=== PATIENT | female | born 1935 | race Caucasian/White ===

== ENCOUNTER 2017-03-15 11:54 | Outpatient (CLI) | payer MEDICARE ==
[2013-01-03 07:51] VITALS: BMI 26.3
== END 2017-03-15 16:31 ==
LOC: D.MAMMO 11:54
DX: Z12.31 Encounter for screening mammogram for malignant neoplasm of breast (principal)

== ENCOUNTER → 2018-10-25 08:57 | Outpatient (CLI) | payer MEDICARE ==
[2013-01-03 07:51] VITALS: BMI 26.3
--- NOTE | 2018-11-01 12:11 | ST ---
PATIENT:FRANCISCO CAMARILLO MEDICAL RECORD: [id number] SEX: F LOCATION:[facility] ORDER #: ADMISSION DATE: 10/25/18 AGE OF PATIENT: 83 REFERRING PHYSICIAN: INTERPRETING PHYSICIAN: RAMIREZ CASTAÑEDA MD DATE OF SERVICE: 10/25/2018 PROCEDURE: Nuclear stress test. INDICATIONS: Angina, hypertension, diabetes, and hyperlipidemia. PROCEDURE DETAILS: The patient was exercised on standard Karthikeyan protocol for 5 minutes achieving greater than 85% max target heart rate response with 31 mCi of sestamibi injected at peak stress. Rest images were done previously with 10 mCi. FINDINGS: Gated SPECT reveals preserved ejection fraction at 73% with good wall motion and thickening and brightening throughout all segments. SPECT imaging Cardiolite was used as myocardial fusion agent. There is homogeneous uptake throughout all segments at rest and stress with no evidence of inducible ischemia or previous infarction. OVERALL IMPRESSION: 1. This is a normal nuclear stress test with no evidence of inducible ischemia or previous infarction. 2. Gated SPECT reveals a preserved ejection fraction at 73%. In this patient with ongoing symptomatology, the current scan does not suggest the presence of hemodynamically significant coronary artery disease. Evaluate noncardiac etiology of chest pain. TRANSINT:[id number] Voice Confirmation ID: [id number] DOCUMENT ID: [id number] cc: SHEEBA Doll JEFFREY MD at 1211 CC: [id number] DICTATION DATE: 10/25/18 1521 DRAFTER AUTOMOTIVE DESIGN: 10/25/18 2357 DEP CLI 10/25/18 [address] [place] [address]
== END | disposition home or self-care (01) ==
LOC: D.HCCARDIO 08:57
DX: I20.9 Angina pectoris, unspecified (principal); I10 Essential (primary) hypertension; E11.9 Type 2 diabetes mellitus without complications; E78.5 Hyperlipidemia, unspecified

== ENCOUNTER → 2020-03-17 08:32 | Outpatient (CLI) | payer MEDICARE ==
[2013-01-03 07:51] VITALS: BMI 26.3
== END | disposition home or self-care (01) ==
LOC: D.RAD 08:32
PROVIDERS: ATTEND Anesthesiology Pain Medicine
DX: M25.559 Pain in unspecified hip (principal); M46.1 Sacroiliitis, not elsewhere classified

== ENCOUNTER 2020-07-07 14:56 | Observation (INO) | payer MEDICARE ==
[~2020-07-07] VITALS: Ht 165.1 cm; Wt 68.6 kg
--- NOTE | ~2020-07-07 | HEMODYNAMI ---
PATIENT:FRANCISCO CAMARILLO MEDICAL RECORD: [id number] : 39 [id number] ADMISSION DATE: 07/07/20 Generatedon:07/08/20208:56 Patient name: FRANCISCO CAMARILLO Patient #: [id number] SSN: : 1935 Date of study: 07/08/2020 Page: Of Hemodynamic Procedure Report Patient Data Patient Demographics Procedure consent was obtained First Name: FRANCISCO Gender: Female Last Name: RABIA : 1935 [facility] Initial: L Age: 85 year(s) Patient #: [id number] Race: Unknown Additional ID: [id number] Contact details Address: [address] [place] [address] [address] State: [place] City: [place] Zip code: [address] Past Medical History Allergies: No known allergies Admission Admission Data Admission Date: 07/07/2020 Admission Time: 14:56 Room #: D.2236 Procedure Procedure Types Cath Procedure Peripheral Cath Diagnostic Procedure PICC PICC Line Placement Procedure Description Procedure Date Procedure Date: 07/08/2020 Procedure Start Time: 8:36 Procedure End Time: 8:55 Procedure Staff Name Function Geremias Burns MD Performing Physician NACHO BETANCUR RT Monitor Burke Frias RT Scrub Marie Can RN Nurse Sara DE LOS SANTOS RN Nurse Procedure Data Cath Procedure Fluoroscopy Diagnostic fluoroscopy Total fluoroscopy Time: 0.7 time: 0.7 min min Contrast Material Contrast Material Type Amount (ml) Isovue 300 5 Hemodynamics Rest Pre Cath Intra NCS Post Cath Procedure Log Time Note 8:14:58 Sara DE LOS SATNOS RN sent for patient. Start room use. 8:14:59 Time tracking: Regular hours (M-F 7:00 - 5:00) 8:15:13 Patient received from Med/Surg to IR Alert and oriented. Tansferred to table in Supine position. 8:15:14 Signed procedure consent form obtained from patient. 8:15:16 Warm blankets applied, and kathy hugger turned on for patient comfort. 8:15:16 Correct patient and procedure confirmed by team. 8:15:19 8:15:25 H&P Date Dictated: 07/08/2020 Within 30 days and on chart.. 8:15:26 Pre-procedure instructions explained to patient. 8:15:26 Pre-op teaching completed and patient verbalized understanding. 8:15:35 Patient allergic to No known allergies 8:15:38 8:15:44 Use device set IR Diagnostic 8:15:45 Bag Decanter (2002S) opened to sterile field. 8:15:45 Sterile Angiographic Pack opened to sterile field. 8:15:46 Tegaderm 4 x 4 (1626W) opened to sterile field. 8:15:53 PowerPICC 5Fr double lumen catheter opened to sterile field. 8:27:29 Left Arm area was prepped with chlora-prep and draped in sterile fashion 8:32:46 --------ALL STOP TIME OUT------ 8:32:47 Final Timeout: patient, procedure, and site verified with staff and physician. All members of the team are in agreement. 8:34:34 Sharps counted by scrub and verified by R.N. 8:34:36 Procedure started. 8:34:37 Full Disclosure recording started 8:36:06 Local anesthetic to left brachial vein with Lidocaine 1% by Geremias Burns MD.INITIAL ACCESS ONLY 8:39:41 Venous access obtained using ultrasound guidance. 8:48:39 PowerPICC 5Fr double lumen catheter opened to sterile field. 8:51:20 Local anesthetic to left subclavian vein with Lidocaine 1% by Geremias Burns MD.ADDITIONAL ACCESS 8:52:58 PICC line was trimmed to 44cm and advanced to the superior vena cava.Position verified under fluoroscopy. 8:53:07 Procedure ended.(Physican Out) 8:53:32 Fluoroscopy time 00.70 minutes. 8:53:34 Dose Area Product 1 mGy/cm. 8:53:37 Contrast amount:Isovue 300 5ml. 8:53:38 Sharps counted by scrub and verified by R.N. 8:53:40 Insertion/operative site no bleeding no hematoma. 8:53:45 Post-op/insertion site Left Subclavian vein dressed using a gauze eyepad and tegaderm. 8:53:50 Procedure and supply charges have been captured, reviewed, submitted and are correct. 8:55:42 See physician's report for complete and final results. 8:55:46 Procedure ended. 8:55:46 Full Disclosure recording stopped Device Usage Item Name Manufacture Quantity Catalog Hospital Part Current Minimal Lot# / Number Charge Number Stock Stock Serial# Code Bag Decanter Microtek 1 [id number] 5 () [employer] Sterile Cardinal 1 [id number] [id number] 5 Angiographic Health Pack Tegaderm 4 x 3M 1 [id number] [id number] 5 4 (1626W) [facility]ITAL[facility] Bard 2 [id number] [id number] [id number] [id number] 5 5Fr double lumen catheter Signature Audit Sophia Stage Time Signature Unsigned Intra-Procedure 07/08/2020 NACHO BETANCUR RT 8:56:50 AM (R) [facility] [address] [place] [address]
[2020-07-07] MEDS ORDERED: COZAAR100 MG PO (15:52)
[2020-07-07] MEDS ORDERED: ZOLOFT50 MG PO (15:53)
[2020-07-07] MEDS ORDERED: MOBIC7.5 MG PO (15:54)
[2020-07-07] MEDS ORDERED: HYDROCODON-ACE1 EA10 PO (15:54)
[2020-07-07] MEDS ORDERED: METHOTREXATE2.5 MG PO (15:55)
[2020-07-07] MEDS ORDERED: MIRAPEX0.5 MG PO (15:57)
[2020-07-07] MEDS ORDERED: NORVASC10 MG PO (15:58)
[2020-07-07] MEDS ORDERED: GLUCOPHAGE1000 MG PO (15:59)
[2020-07-07] MEDS ORDERED: TENORMIN25 MG PO (16:00)
[2020-07-07] MEDS ORDERED: GABAPENTIN300 MG PO (16:01)
[2020-07-07] MEDS ORDERED: PREDNISONE5 MG PO (16:02)
[2020-07-07] MEDS ORDERED: SYNTHROID112 MCG PO (16:03)
[2020-07-07 16:04] VITALS: BP 148/61; BMI 25.1
[2020-07-07] MEDS ORDERED: PRAVACHOL40 MG PO (16:04)
[2020-07-07 16:18] VITALS: Ht 165.1 cm; Wt 68.6 kg
--- NOTE | 2020-07-07 21:59 | NUR ---
REC'D IN BED CHGE OF SHIFT WALKING ROUNDS WATCHING TV. DENIES ANY DISCOMFORT AT PRESENT TIME WILL CONTINUE TO MONITOR FOR ANY CHGES. AND FOLLOW CURRENT PLAN OF CARE
[2020-07-07 22:21] VITALS: BP 141/55
--- NOTE | 2020-07-08 03:40 | NUR ---
I have reviewed this patient and I concur with the Shift Assessment completed by the Licensed Practical Nurse today this shift.
[2020-07-08 04:00] VITALS: BP 151/77
--- NOTE | 2020-07-08 07:15 | NUR ---
RECEIVED BEDSIDE REPORT. PT SITTING UP IN BED A&O X4. PT WEARING GLASSES. DENIES PAIN. EDUCATED ON CL AND NEEDS, VERBALIZED UNDERSTANDING. BED LOW, RAILS X2. CL IN REACH. WILL CONTINUE TO MONITOR.
[2020-07-08] MEDS ORDERED: INVANZ 1 GM/NS 11 G1 IV (08:18)
--- NOTE | 2020-07-08 09:15 | NUR ---
EDUCATED PT ON CONSENT FORMS,VERBALIZED UNDERSTANDING AND SIGNED PAPERWORK. CL IN REACH.
--- NOTE | 2020-07-08 11:45 | NUR ---
PT ESCORTED BACK FROM IR, PICC LINE PLACED TO LEFT AC, PATENT, NO REDNESS OR SWELLING. ADMINISTERED ANTIBIOTICS. PT TOLERATED WELL. CL IN REACH.
[2020-07-08 11:56] VITALS: BP 132/56
--- NOTE | 2020-07-08 14:42 | MORECARE ---
CASE MANAGEMENT DISCHARGE SUMMARY PATIENT: FRANCISCO CAMARILLO UNIT: [id number] ADM DATE: 07/07/20 AGE: 85 : 37 SEX: F ROOM/BED: D.[facility]6 AUTHOR: ANDRZEJ FRANKLIN PHYSICIAN: REFERRING PHYSICIAN: NICO HERNANDEZ MD DATE OF SERVICE: 07/08/20 Discharge Plan Patient Name: FRANCISCO CAMARILLO Facility: [facility]:[place] : 1935 Planned Disposition: Anticipated Discharge Date: Discharge Date: Expected LOS: Initial Reviewer: [email or web address] Initial Review Date: 07/07/2020 Generated: 07/08/20 3:42 pm Patient Name: FRANCISCO CAMARILLO Page [id number] at 1442 All edits/amendments must be made on the electronic document DICTATION DATE: 07/08/201441 DIRECTOR ORACLE: LACIE 07/08/201441 RPT#: [id number] DC DATE: STATUS: ADM IN [facility] [address] [place] [address] END OF REPORT
--- NOTE | 2020-07-08 14:51 | MORECARE ---
CASE MANAGEMENT DISCHARGE SUMMARY PATIENT: FRANCISCO CAMARILLO UNIT: [id number] ADM DATE: 07/07/20 AGE: 85 : 37 SEX: F ROOM/BED: D.[facility] AUTHOR: ANDRZEJ FRANKLIN PHYSICIAN: REFERRING PHYSICIAN: NICO HERNANDEZ MD DATE OF SERVICE: 07/08/20 Discharge Plan Patient Name: FRANCISCO CAMARILLO Facility: [facility]:[place] : 1935 Planned Disposition: Anticipated Discharge Date: Discharge Date: Expected LOS: Initial Reviewer: [email or web address] Initial Review Date: 07/07/2020 Generated: 07/08/20 3:50 pm Comments DCP- Discharge Planning Updated by [email or web address]: Hien Giordano on 07/08/20 1:[address] Patient Name: FRANCISCO CAMARILLO Admission Status: Elective Accout number: [id number] Admission Date: 07-07-2020 : 1935 Admission Diagnosis: Attending: NICO HERNANDEZ Current LOS: 1 Anticipated DC Date: Planned Disposition: Primary Insurance: MEDICARE A & B Discharge Planning Comments: IV MED ORDER FAXED TO SCHEDULING IN OUTPATIENTS, PATIENT TO CHECK IN AT OUTPATIENT AT 12:30 TOMORROW. House Principal: Hien Johnson DP export: 07/08/20 1:42 p Patient Name: FRANCISCO CAMARILLO Page [phone] at 1451 All edits/amendments must be made on the electronic document DICTATION DATE: 07/08/201450 BRUSH WORKER: LACIE 07/08/201450 RPT#: [id number] DC DATE: STATUS: ADM IN [facility] [address] [place] [address] END OF REPORT
--- NOTE | 2020-07-08 15:49 | NUR ---
WRAPPED PICC LINE WITH DRESSING. EDUCATED PT ON DISCHARGE INSTRUCTIONS, MEDICATIONS, NEXT APT WITH OUTPATIENT, FOLLOW UP APT, VERBALIZED UNDERSTANDING AND SIGNED PAPERWORK. ESCORTED PT TO FRONT ENTRANCE VIA WHEELCHAIR.
--- NOTE | 2020-07-09 12:12 | MORECARE ---
CASE MANAGEMENT DISCHARGE SUMMARY PATIENT: FRANCISCO CAMARILLO UNIT: [id number] ADM DATE: 07/07/20 AGE: 85 : 37 SEX: F ROOM/BED: D.[facility]6 AUTHOR: ANDRZEJ FRANKLIN PHYSICIAN: REFERRING PHYSICIAN: NICO HERNANDEZ MD DATE OF SERVICE: 07/09/20 Discharge Plan Patient Name: FRANCISCO CAMARILLO Facility: [facility]:[place] : 1935 Planned Disposition: Anticipated Discharge Date: Discharge Date: 07/08/2020 Expected LOS: Initial Reviewer: [email or web address] Initial Review Date: 07/07/2020 Generated: 07/09/20 1:12 pm Comments DCP- Discharge Planning Updated by [email or web address]: Hien Giordano on 07/08/20 1:[address] Patient Name: FRANCISCO CAMARILLO Admission Status: Elective Accout number: [id number] Admission Date: 07-07-2020 : 1935 Admission Diagnosis: Attending: NICO HERNANDEZ Current LOS: 1 Anticipated DC Date: Planned Disposition: Primary Insurance: MEDICARE A & B Discharge Planning Comments: IV MED ORDER FAXED TO SCHEDULING IN OUTPATIENTS, PATIENT TO CHECK IN AT OUTPATIENT AT 12:30 TOMORROW. Government Professor: Hien Johnson DP export: 07/08/20 1:51 p Patient Name: FRANCISCO CAMARILLO Page [phone] at 1212 All edits/amendments must be made on the electronic document DICTATION DATE: 07/09/20 1212 CARD CLEANER: LACIE 07/09/20 1212 RPT#: [id number] DC DATE:07/08/20 STATUS: DIS IN [facility] [address] [place] [address] END OF REPORT
== END 2020-07-08 15:51 | disposition home or self-care (01) ==
LOC: D.MS 14:56 → OBSVTIME 16:34 → D.MS 07-08 15:51
PROVIDERS: ADMIT Family Medicine; ATTEND Family Medicine
DX: N39.0 Urinary tract infection, site not specified (principal); B96.20 Unspecified Escherichia coli [E. coli] as the cause of diseases classified elsewhere; E11.9 Type 2 diabetes mellitus without complications

== ENCOUNTER → 2020-07-09 12:06 | Outpatient (CLI) | payer MEDICARE ==
[~2020-07-09] VITALS: Ht 165.1 cm; Wt 68.2 kg
[~2020-07-09 12:06] MED LIST: COZAAR100 MG PO; GABAPENTIN300 MG PO; GLUCOPHAGE1000 MG PO; HYDROCODON-ACE1 EA10 PO; INVANZ 1 GM/NS 11 G1 IV; METHOTREXATE2.5 MG PO; MIRAPEX0.5 MG PO; MOBIC7.5 MG PO; NORVASC10 MG PO; PRAVACHOL40 MG PO; PREDNISONE5 MG PO; SYNTHROID112 MCG PO; TENORMIN25 MG PO; ZOLOFT50 MG PO
[2020-07-09 12:58] VITALS: BP 162/69; Ht 165.1 cm; Wt 68.2 kg
--- NOTE | 2020-07-09 14:34 | NUR ---
1345-INFUSION COMPLETE. PICC LINE FLUSHED WITH SALINE AND HEP FLUSH X 2 PORTS. 1405-D/C HOME, ESCORTED TO FRONT VIA WHEELCHAIR.
== END | disposition home or self-care (01) ==
LOC: D.OPS 12:06
PROVIDERS: ATTEND Family Medicine
DX: N39.0 Urinary tract infection, site not specified (principal); B96.20 Unspecified Escherichia coli [E. coli] as the cause of diseases classified elsewhere

== ENCOUNTER 2020-07-10 12:05 | Outpatient (CLI) | payer MEDICARE ==
[~2020-07-10] VITALS: Ht 165.1 cm; Wt 68.2 kg
[2020-07-10 13:22] VITALS: Ht 165.1 cm; Wt 68.2 kg
--- NOTE | 2020-07-10 14:46 | NUR ---
PICC LINE HEP-LOCKED. DISCHARGE PAPERWORK SIGNED, ALL QUESTIONS ANSWERED. PT AMBULATED OUT
== END 2020-07-10 14:58 | disposition home or self-care (01) ==
LOC: D.OPS 12:05 → D.MS 12:38 → D.OPS 14:58
PROVIDERS: ATTEND Family Medicine
DX: B96.20 Unspecified Escherichia coli [E. coli] as the cause of diseases classified elsewhere (principal); N39.0 Urinary tract infection, site not specified

== ENCOUNTER 2020-07-11 10:11 | Outpatient (CLI) | payer MEDICARE ==
[~2020-07-11] VITALS: Ht 165.1 cm; Wt 65.0 kg
[2020-07-11 15:17] VITALS: Ht 165.1 cm; Wt 65.0 kg
== END 2020-07-11 14:10 | disposition home or self-care (01) ==
LOC: D.OPS 10:11 → D.MS 10:12 → D.OPS 14:10
PROVIDERS: ATTEND Nurse Practitioner Family
DX: B96.20 Unspecified Escherichia coli [E. coli] as the cause of diseases classified elsewhere (principal); N39.0 Urinary tract infection, site not specified

== ENCOUNTER 2020-07-12 10:12 | Outpatient (CLI) | payer MEDICARE ==
[~2020-07-12] VITALS: Ht 165.1 cm; Wt 67.3 kg
[2020-07-12 11:22] VITALS: Ht 165.1 cm; Wt 67.3 kg
== END 2020-07-12 12:19 | disposition home or self-care (01) ==
LOC: D.OPS 10:12
PROVIDERS: ATTEND Family Medicine
DX: B96.20 Unspecified Escherichia coli [E. coli] as the cause of diseases classified elsewhere (principal); N39.0 Urinary tract infection, site not specified

== ENCOUNTER 2020-07-13 09:56 | Outpatient (CLI) | payer MEDICARE ==
[~2020-07-13] VITALS: Ht 165.1 cm; Wt 67.1 kg
[2020-07-13 10:29] VITALS: Ht 165.1 cm; Wt 67.1 kg
== END 2020-07-13 11:22 | disposition home or self-care (01) ==
LOC: D.OPS 09:56
PROVIDERS: ATTEND Family Medicine
DX: B96.20 Unspecified Escherichia coli [E. coli] as the cause of diseases classified elsewhere (principal); N39.0 Urinary tract infection, site not specified

== ENCOUNTER 2020-07-14 10:39 | Outpatient (CLI) | payer MEDICARE ==
[~2020-07-14] VITALS: Ht 165.1 cm; Wt 67.3 kg
[2020-07-14 11:01] VITALS: Ht 165.1 cm; Wt 67.3 kg
== END 2020-07-14 11:45 | disposition home or self-care (01) ==
LOC: D.OPS 10:39
PROVIDERS: ATTEND Family Medicine
DX: B96.20 Unspecified Escherichia coli [E. coli] as the cause of diseases classified elsewhere (principal); N39.0 Urinary tract infection, site not specified

== ENCOUNTER 2020-07-15 10:27 | Outpatient (CLI) | payer MEDICARE ==
[~2020-07-15] VITALS: Ht 165.1 cm; Wt 67.3 kg
[2020-07-15 11:10] VITALS: BP 136/55; Ht 165.1 cm; Wt 67.3 kg
--- NOTE | 2020-07-15 12:20 | NUR ---
INVANZ GIVEN PER ORDERS. PICC LINE DRESSING CHANGE COMPLETED. ALL NEW CAPS APPLIED. FLUSHED WITH NS AND HEP FLUSH PER ORDERS. NO OTHER NEEDS VOICED. DC INSTRUCTIONS GIVEN. TAKEN OUT BY JUAN LIRIANO TO CC VAN. ADVISED TO RETURN TOMORROW AFTERNOON FOR NEXT INFUSION AND CALL OR COME BACK IF ANY PROBLEMS. VOICES UNDERSTANDING.
== END 2020-07-15 12:15 | disposition home or self-care (01) ==
LOC: D.OPS 10:27
PROVIDERS: ATTEND Family Medicine
DX: B96.20 Unspecified Escherichia coli [E. coli] as the cause of diseases classified elsewhere (principal); N39.0 Urinary tract infection, site not specified

== ENCOUNTER 2020-07-16 13:16 | Outpatient (CLI) | payer MEDICARE ==
[~2020-07-16] VITALS: Ht 165.1 cm; Wt 67.3 kg
[2020-07-16 13:56] VITALS: Ht 165.1 cm; Wt 67.3 kg
--- NOTE | 2020-07-16 14:29 | NUR ---
INVANZ INFUSED PER ORDERS. TOLERATED WELL. AMBULATED TO BATHROOM WITH ASSIST. ALL DC INSTRUCTIONS GIVEN. ADVISED TO RETURN TOMORROW FOR NEXT INFUSION AND CALL OR COME BACK IF ANY PROBLEMS. VOICED UNDERSTANDING.
== END 2020-07-16 14:31 | disposition home or self-care (01) ==
LOC: D.OPS 13:16
PROVIDERS: ATTEND Family Medicine
DX: B96.20 Unspecified Escherichia coli [E. coli] as the cause of diseases classified elsewhere (principal); N39.0 Urinary tract infection, site not specified

== ENCOUNTER 2020-07-17 12:41 | Outpatient (CLI) | payer MEDICARE ==
[~2020-07-17] VITALS: Ht 165.1 cm; Wt 67.3 kg
[2020-07-17 13:01] VITALS: BP 113/50; Ht 165.1 cm; Wt 67.3 kg
--- NOTE | 2020-07-17 13:05 | NUR ---
OPS ADMISSION COMPLETE. PICC LINE TO LEFT ARM PATENT. DRSG CHANGED YESTERDAY PER PATIENT. WILL GIVE ABX.
--- NOTE | 2020-07-17 13:38 | NUR ---
CALLED PHARMACY WHO STATES WILL PUT IN MED ORDER.
--- NOTE | 2020-07-17 14:26 | NUR ---
ANTIBIOTIC INFUSION COMPLETE. PATIENT DENIES FURTHER NEEDS. DISCHARGE PAPER PROVIDED AND PATIENT DC HOME WITH ALL BELONGINGS.
[2020-07-18] MEDS ORDERED: CYCLOBENZAPRINE10 MG PO (11:04)
[2020-07-18] MEDS ORDERED: ACETAMINOPHEN500 M1 PO (11:04)
== END 2020-07-17 14:34 | disposition home or self-care (01) ==
LOC: D.OPS 12:41 → D.MS 12:54 → D.OPS 14:23
PROVIDERS: ATTEND Family Medicine
DX: B96.20 Unspecified Escherichia coli [E. coli] as the cause of diseases classified elsewhere (principal); N39.0 Urinary tract infection, site not specified

== ENCOUNTER 2020-07-18 08:39 | Emergency (ER) | payer MEDICARE ==
[~2020-07-18] VITALS: Ht 165.1 cm; Wt 67.3 kg
[2020-07-18 08:41] VITALS: Ht 165.1 cm; Wt 67.3 kg
[2020-07-18] MEDS ORDERED: CYCLOBENZAPRINE10 MG PO (11:04)
[2020-07-18] MEDS ORDERED: ACETAMINOPHEN500 M1 PO (11:04)
[2020-07-18 11:27] VITALS: BP 137/59
== END 2020-07-18 11:27 | disposition home or self-care (01) ==
LOC: D.ER 08:39
DX: S20.212A Contusion of left front wall of thorax, initial encounter (principal); W19.XXXA Unspecified fall, initial encounter; Y93.9 Activity, unspecified; Y92.9 Unspecified place or not applicable; E11.9 Type 2 diabetes mellitus without complications; I10 Essential (primary) hypertension; Z79.84 Long term (current) use of oral hypoglycemic drugs

== ENCOUNTER 2020-07-18 14:03 | Outpatient (CLI) | payer MEDICARE ==
[~2020-07-18] VITALS: Ht 165.1 cm; Wt 67.1 kg
[~2020-07-18 14:03] MED LIST changes: +ACETAMINOPHEN500 M1 PO; +CYCLOBENZAPRINE10 MG PO
[2020-07-18 14:27] VITALS: BP 134/63; Ht 165.1 cm; Wt 67.1 kg
--- NOTE | 2020-07-18 14:29 | NUR ---
OP ADMISSION COMPLETE. PHARMACY NOTIFIED PATIENT ON UNIT AND NEED ABX. ORDERS FAXED.
--- NOTE | 2020-07-18 14:42 | NUR ---
ABX INITIATED. PATIENT DENIES NEEDS AT THIS TIME.
--- NOTE | 2020-07-18 15:15 | NUR ---
ABX COMPLETE. PATIENT DC HOME WITH ALL BELONGINGS.
== END 2020-07-18 15:19 | disposition home or self-care (01) ==
LOC: D.OPS 14:03 → D.MS 14:06 → D.OPS 14:25
PROVIDERS: ATTEND Family Medicine
DX: B96.20 Unspecified Escherichia coli [E. coli] as the cause of diseases classified elsewhere (principal); N39.0 Urinary tract infection, site not specified

== ENCOUNTER 2020-07-19 13:05 | Outpatient (CLI) | payer MEDICARE ==
[~2020-07-19] VITALS: Ht 165.1 cm; Wt 67.3 kg
[2020-07-19 13:44] VITALS: Ht 165.1 cm; Wt 67.3 kg
--- NOTE | 2020-07-19 15:32 | NUR ---
1500 INFUSION HAS COMPLETED, LINE FLUSHED WITH 10CC NS AND PT UP TO BR VOIDS AND DC'D IN WC.
== END 2020-07-19 15:05 | disposition home or self-care (01) ==
LOC: D.OPS 13:05
PROVIDERS: ATTEND Family Medicine
DX: B96.20 Unspecified Escherichia coli [E. coli] as the cause of diseases classified elsewhere (principal); N39.0 Urinary tract infection, site not specified

== ENCOUNTER 2020-07-20 11:07 | Outpatient (CLI) | payer MEDICARE ==
[~2020-07-20] VITALS: Ht 165.1 cm; Wt 68.6 kg
[2020-07-20 11:49] VITALS: Ht 165.1 cm; Wt 68.6 kg
== END 2020-07-20 12:20 | disposition home or self-care (01) ==
LOC: D.OPS 11:07
PROVIDERS: ATTEND Family Medicine
DX: B96.20 Unspecified Escherichia coli [E. coli] as the cause of diseases classified elsewhere (principal); N39.0 Urinary tract infection, site not specified

== ENCOUNTER 2020-07-21 10:17 | Outpatient (CLI) | payer MEDICARE ==
[~2020-07-21] VITALS: Ht 165.1 cm; Wt 67.3 kg
[2020-07-21 10:35] VITALS: BP 140/64; Ht 165.1 cm; Wt 67.3 kg
== END 2020-07-21 11:38 ==
LOC: D.OPS 10:17
PROVIDERS: ATTEND Family Medicine
DX: B96.20 Unspecified Escherichia coli [E. coli] as the cause of diseases classified elsewhere (principal); N39.0 Urinary tract infection, site not specified